=== PATIENT | male | born 1985 | race Caucasian/White ===

== ENCOUNTER 2024-11-08 19:59 | Emergency (ER) | payer BC, SELFPAY ==
[2024-11-08] VITALS (13 sets, daily range): BP systolic 105–140; BP diastolic 68–99; PULSE 80–115; RESP 16–23; TEMP 36.7; O2SAT 94–97; BMI 32.3
--- NOTE | 2024-11-08 20:01 | ECG_ITS ---
[facility] Test Date: 2024-11-08 Pat Name: Freddy Truong Department: Room: Gender: Male [employer]: : [id number] Requested By: Kamar Lindo Order Number: [id number] Samano MD: Andrew Mccall M.D. Measurements Intervals [place] Rate: 104 P: 58 FL: 155 QRS: 5 QRSD: 102 T: 54 QT: 325 QTc: 429 Interpretive Statements SINUS TACHYCARDIA ABNORMAL RHYTHM ECG No previous ECG available for comparison Electronically Signed On 11-09-2024 17:07:15 [employer]HR[employer] BU[employer] by Andrew Mccall M.D. [email or web address]
--- NOTE | 2024-11-08 20:37 | XRR_ITS ---
PROCEDURE INFORMATION: Exam: XR Chest Exam date and time: 11/08/2024 8:47 PM Age: 39 years old Clinical indication: Patient HX: C/O palpitations TECHNIQUE: Imaging protocol: Radiologic exam of the chest. Views: 1 view. COMPARISON: No relevant prior studies available. FINDINGS: Lungs: Unremarkable. No consolidation. Pleural spaces: Unremarkable. No pleural effusion. No pneumothorax. Heart/Mediastinum: Unremarkable. No cardiomegaly. Bones/joints: Unremarkable. XR/XR chest 1V portable [id number] IMPRESSION: No acute findings.
[2024-11-08 20:55] LABS: Basophils % 0.2 %; Hematocrit 48.5 % (37-53); Lymphocytes # 1.2 10^3/uL (0.8-4.8); Lymphocytes % 22.1 %; Mean Corpuscular HGB Conc 32.8 g/dL (30-55); Mean Corpuscular Hemoglobin 27.3 pg (27-33); Mean Corpuscular Volume 83.2 fl (82-101); Mean Platelet Volume 9.9 fL (7.4-10.4); Monocytes # 0.6 10^3/uL (0.2-0.9); Monocytes % 10.8 %; Neutrophils # 3.51 10^3/uL (1.8-7.7); Neutrophils % 66.7 %; Nucleated Red Blood Cells % 0 %; Platelet Count 208 10^3/cmm (157-399); Red Blood Count 5.83 10^6/uL (3.85-5.65); White Blood Count 5.26 10^3/uL (3.29-11.43)
[2024-11-08 21:17] LABS: Alanine Aminotransferase 113 U/L (0-41); Albumin Level 4.6 g/dL (3.5-5.2); Alkaline Phosphatase 98 U/L (40-130); Anion Gap 17.2 (5-19); Aspartate Amino Transferase 57 U/L (0-40); Blood Urea Nitrogen 15 mg/dL (6-20); Calcium 9.5 mg/dL (8.5-10.5); Carbon Dioxide 25 mmol/L (22-29); Chloride 99 mmol/L (98-107); Creatinine Clr Calc Pharmacy 130.5914; Globulin 2.8 g/dL (1.3-4.6); Glomerular Filtration Rate 93.5 mL/min (90-130); Glucose 187 mg/dL (65-115); Osmolality Calculated 290 mOsm/kg (285-295); Potassium 4.2 mmol/L (3.5-5.1); Sodium 137 mmol/L (136-145); Total Bilirubin 0.6 mg/dL (0.15-1.2); Total Protein 7.4 g/dL (6.6-8.7)
[2024-11-08 21:32] LABS: Troponin(5th) Baseline < 6 ng/L (0-15)
[2024-11-08 21:40] LABS: Bacteria Urine None Seen /hpf; Hyaline Casts Urine 0-4 /lpf; RBC Urine 0-2 /hpf (0-2); Squamous Epithelial Cell Urine 0-5 /hpf (0-5); WBC Urine 0-5 /hpf (0-5)
[2024-11-08 22:09] LABS: Bilirubin Urine Negative (Negative); Blood Urine Negative (Negative); Glucose Urine UA Negative (Normal); Ketones Urine Negative (Negative); Leukocyte Esterase Urine Negative (Negative); Nitrate Urine Negative (Negative); Protein Urine Negative (Negative); Specific Gravity, Urine 1.004 (1.005-1.030); Urine Appearance Clear (CLEAR); Urine Color Yellow (Yellow); Urobilinogen Urine 0.2 mg/dL (Negative); pH Urine 7.5 (5-7)
--- NOTE | 2024-11-08 22:30 | ED_ITS ---
HPI - Arrhythmia/Palpitations 2 General: Chief Complaint: Arrhythmia/Palpitations Stated Complaint: tightness in chest Time Seen by Provider: 11/08/24 20:37 History of Present Illness: Patient is a 39-year-old male that presents to the emergency department with complaints of URI palpitations dizziness. Patient is at bedside and she reports onset of symptoms on Lynda. Started with URI type symptoms, head cold and a cough. He was treated with prednisone and albuterol inhaler. Several days ago patient went back to urgent care for evaluation when he became dizzy. He was diagnosed with a left ear infection. Today patient developed ear pain, fluid in his ear, and dizziness. He was evaluated in the urgent care and started on cefdinir for an ear infection. Patient took 1 dose and this afternoon had an episode where he developed a short episode of palpitations. Upon arrival in the emergency department he is mildly tachycardic. He denies chest pain or shortness of breath. He does report taking prednisone, albuterol inhaler, and his cefdinir today just before arrival Related Data Previous Rx's Medication Instructions Recorded amoxicillin 875 mg-potassium 1 tab PO BID 5 days #10 tabs 11/08/24 clavulanate 125 mg tablet Allergies Allergy/AdvReac Type Severity Reaction Status Date / Time No Known Allergies Allergy Verified 11/08/24 20:15 Review of Systems 2 General: Reports: 10 or more systems reviewed and unremarkable except in HPI and below Physical Exam 2 Const: COMMON NORMALS: no acute distress, patient oriented x3 and alert G ENERAL APPEARANCE: cooperative ORIENTATION/CONSCIOUSNESS: Yes awake, Yes oriented to person, Yes oriented to place and Yes oriented to time HENMT: COMMON NORMALS: normocephalic and atraumatic HEAD & SCALP: n ormocephalic and atraumatic FACE & SINUS: normal facial exam MOUTH: Normal oral and palatal mucosa present THROAT: posterior oropharynx normal Eye: COMMON NORMALS: Equal, round and reactive pupils present, EOMs intact bilaterally, conjunctivae normal and no scleral icterus GENERAL EYE: a ppearance normal, both eyes and all related structures ALIGNMENT: Yes alignment normal PERIORBITAL: periorbital findings normal CONJUNCTIVA: Yes conjunctivae normal PUPIL: Yes Equal, round and reactive pupils present Neck/C-Spine: COMMON NORMALS: full ROM GENERAL: Yes normal visual inspection Lymph: LYMPHATIC: no lymphadenopathy noted Chest: COMMONS NORMALS: normal inspection of the chest Breast/axilla inspection: Yes no chest deformity, asymmetry, normal contours, no nodules, masses, tenderness Resp: COMMON NORMALS: normal respiratory effort, No retractions, No use of accessory muscles and clear to auscultation bilaterally EFFORT & INSPECTION: Yes able to speak in complete sentences and Yes symmetric chest movement A USCULTATION: clear to auscultation bilaterally Cardio: COMMON NORMALS: regular rate, regular rhythm and Peripheral pulses 2+ throughout RATE: regular rate RHYTHM: regular rhythm PERIPHERAL PULSES: Peripheral pulses 2+ throughout GI: COMMON NORMALS: Normal to inspection, nondistended, normoactive bowel sounds present, Soft to palpation, non-tender and No hepatosplenomegaly present INSPECTION: Yes normal to inspection AUSCULTATION: Yes normoactive bowel sounds PALPATION: Yes Soft to palpation and Yes No hepatosplenomegaly present RECTAL EXAM: Yes deferred Extremity: COMMON NORMALS: normal to inspection GENERAL: Yes normal exam except as noted Neuro: COMMON NORMALS: patient oriented x3 SENSORIUM/ORIENTATION: Yes alert, Yes oriented to person, Yes oriented to place and Yes oriented to time CRANIAL NERVES: Yes CN normal except as noted Psych: COMMON NORMALS: mental status grossly normal, Normal thought process present, cooperative, activity/motor behavior normal, denies homicidal ideation and denies suicidal ideation THOUGHT PROCESS: Normal thought process present Skin: COMMON NORMALS: no rashes or lesions noted, no wounds and turgor normal GENERAL SKIN EXAM: no rashes or lesions noted and turgor normal Course 2 Vital Signs: Vital signs: Vital Signs Temperature 98.1 F 11/08/24 20:06 Pulse Rate 85 11/08/24 23:00 Respiratory Rate 23 H 11/08/24 23:00 Blood Pressure 123/70 11/08/24 23:00 Pulse Oximetry 95 11/08/24 23:00 Oxygen Delivery Me thod Room Air 11/08/24 20:06 MDM - Arrhythmia/Palpitations Medical Decision Making Patient was evaluated in the emergency department with complaint of palpitation that is new from his prior symptoms. Here in the ER we underwent chest x-ray which revealed no acute finding. He underwent a laboratory evaluation that included CBC, CMP, troponin series, SARS COVID antigen, and a urinalysis. EKGs were performed which revealed sinus tachycardia without ectopy, ST elevation or abnormal T wave inversion. The rate was 104 beats a minute. COVID antigen negative Chemistry panel reveals no electrolyte abnormalities, renal dysfunction or liver dysfunction. The CBC reveals no electrolyte abnormality, anemias, thrombocytopenia. Urinalysis was unremarkable. Patient's is concerned that the episode of palpitations was an allergic reaction to the cefdinir that he was started on. I explained to the patient and his that I do not believe this would happen I think it is the albuterol and the prednisone that he was using. Ultimately they were seeking new antibiotics as they will not be taking the cefdinir again. I did discuss Holter monitor with the patient and his . He declined. He does not have established care with primary but his family sees Dr. Enrrique Vergara. I have strongly encouraged him to set up a follow-up appointment for reevaluation of todays complaints and to also get established for primary care purposes. Lab Data 11/08/24 20:45 11/08/24 20:45 Radiology Impressions Chest X-Ray 11/08/24 20:37 IMPRESSION: No acute findings. Laboratory Results WBC 5.26 10^3/uL (3.29-11.43) 11/08/24 20:45 RBC 5.83 10^6/uL (3.85-5.65) H 11/08/24 20:45 Hgb 15.90 g/dL (11.27-16.99) 11/08/24 20:45 Hct 48.5 % (37-53) 11/08/24 20:45 MCV 83.2 fl (82-101) 11/08/24 20:45 MCH 27.3 pg (27-33) 11/08/24 20:45 MCHC 32.8 g/dL (30-55) 11/08/24 20:45 RDW 12.0 % (12.1-15.1) L 11/08/24 20:45 Plt Count 208 10^3/cmm (157-399) 11/08/24 20:45 MPV 9.9 fL (7.4-10.4) 11/08/24 20:45 Neut % (Auto) 66.7 % 11/08/24 20:45 Lymph % (Auto) 22.1 % 11/08/24 20:45 [place] % (Auto) 10.8 % 11/08/24 20:45 Eos % (Auto) 0.0 % 11/08/24 20:45 Baso % (Auto) 0.2 % 11/08/24 20:45 Neut # (Auto) 3.51 10^3/uL (1.8-7.7) 11/08/24 20:45 Lymph # (Auto) 1.2 10^3/uL (0.8-4.8) 11/08/24 20:45 [place] # (Auto) 0.6 10^3/uL (0.2-0.9) 11/08/24 20:45 Eos # (Auto) 0.0 10^3/uL (0.0-0.8) 11/08/24 20:45 Baso # (Auto) 0.0 10^3/uL (0.0-0.1) 11/08/24 20:45 Nucleated RBC % (auto) 0 % 11/08/24 20:45 Nucleated RBCs # 0.0 /100WBC 11/08/24 20:45 Sodium 137 mmol/L (136-145) 11/08/24 20:45 Potassium 4.2 mmol/L (3.5-5.1) 11/08/24 20:45 Chloride 99 mmol/L (98-107) 11/08/24 20:45 Carbon Dioxide 25 mmol/L (22-29) 11/08/24 20:45 Anion Gap 17.2 (5-19) 11/08/24 20:45 BUN 15 mg/dL (6-20) 11/08/24 20:45 Creatinine 0.9 mg/dL (0.7-1.2) 11/08/24 20:45 GFR Calculation 93.5 mL/min (90-130) 11/08/24 20:45 Glucose 187 mg/dL (65-115) H 11/08/24 20:45 Calculated Osmolality 290 mOsm/kg (285-295) 11/08/24 20:45 Calcium 9.5 mg/dL (8.5-10.5) 11/08/24 20:45 Total Bilirubin 0.6 mg/dL (0.15-1.2) 11/08/24 20:45 AST 57 U/L (0-40) H 11/08/24 20:45 ALT 113 U/L (0-41) H 11/08/24 20:45 Alkaline Phosphatase 98 U/L (40-130) 11/08/24 20:45 Troponin T Baseline < 6 ng/L (0-15) 11/08/24 20:15 Troponin T 120 Minute 6.00 ng/L (0-15) 11/08/24 22:35 Delta Troponin T 0.75397 ABS# (0-10) 11/08/24 22:35 Total Protein 7.4 g/dL (6.6-8.7) 11/08/24 20:45 Albumin 4.6 g/dL (3.5-5.2) 11/08/24 20:45 Globulin 2.8 g/dL (1.3-4.6) 11/08/24 20:45 Urine Color Yellow (Yellow) 11/08/24 20:16 Urine Appearance Clear (CLEAR) 11/08/24 20:16 Urine pH 7.5 (5-7) 11/08/24 20:16 Ur Specific [place] 1.004 (1.005-1.030) L 11/08/24 20:16 Urine Protein Negative (Negative) 11/08/24 20:16 Urine Glucose (UA) Negative (Normal) 11/08/24 20:16 Urine Ketones Negative (Negative) 11/08/24 20:16 Urine Blood Negative (Negative) 11/08/24 20:16 Urine Nitrate Negative (Negative) 11/08/24 20:16 Urine Bilirubin Negative (Negative) 11/08/24 20:16 Urine Urobilinogen 0.2 mg/dL (Negative) 11/08/24 20:16 Ur Leukocyte Esterase Negative (Negative) 11/08/24 20:16 Urine RBC 0-2 /hpf (0-2) 11/08/24 20:16 Urine WBC 0-5 /hpf (0-5) 11/08/24 20:16 Ur Squamous Epith Cells 0-5 /hpf (0-5) 11/08/24 20:16 Amorphous Sediment Not Reportable 11/08/24 20:16 Urine Bacteria None seen /hpf (NONE) 11/08/24 20:16 Hyaline Casts 0-4 /lpf H 11/08/24 20:16 Coronavirus (PCR) Cancelled 11/08/24 20:54 Influenza A (PCR) Cancelled 11/08/24 20:54 Influenza Type B (PCR) Cancelled 11/08/24 20:54 RSV (PCR) Cancelled 11/08/24 20:54 SARS-CoV-2 Ag (Rapid) negative (Negative) 11/08/24 21:44 All radiology interpretation(s) finalized by discharge Discharge Plan Discharge Patient Disposition: Home Clinical Impression: Palpitations Condition: Stable Prescriptions: New amoxicillin-pot clavulanate 875-125 mg tablet 1 tab PO BID 5 Days Qty: 10 0RF Discharge Orders: Discharge ED (Routine); Ordered 11/08/24 Ordered By: Dorinda Powell Referrals: Julio César Vivar [Family Provider] - Discharge Diet: Advance as tolerated Discharge Activity: Resume usual activity Patient Instructions: Albuterol (By breathing) (ProAir, AccuNeb, Proventil, Proventil..., Heart Palpitations (ED), Opioid Safety, Pain Management Activity Restrictions/Additional Instructions: Please take your medication as prescribed Call Dr. Vergara to set up a follow-up appointment and to establish primary care Please return to the emergency department for new concerning or worsening symptoms Coding Level of Care Code ED [facility] Attendant for Riley Campbell
[2024-11-08 22:31] LABS: SARS Covid-2 Antigen negative (Negative)
[2024-11-08 23:10] LABS: Troponin 5 2HR Delta 0.00001 ABS# (0-10)
== END 2024-11-08 23:27 | disposition home or self-care (01) ==
PROVIDERS: Emergency Medicine; Emergency Provider Nurse Practitioner; Family Provider Orthopaedic Surgery Hand Surgery
DX: R00.2 Palpitations (principal); Z11.52 Encounter for screening for COVID-19
CPT/HCPCS: 36415; 71045; 80053; 81001; 84484; 85025; 87426; 93005; 99285